=== PATIENT | female | born 1955 | race Hispanic/Latino ===

== ENCOUNTER 2016-07-11 10:53 | Outpatient (CLI) | payer BC ==
--- NOTE | 2016-07-11 15:27 | Cat Scan Report ---
CT of the abdomen and pelvis with IV and oral contrast. Findings: A device resembling a lap band is seen at the esophagogastric junction. The liver and spleen are normal. There is a 1 cm mass composed of adipose tissue in the lateral cortex of the right kidney. There are no other renal abnormalities except for tiny left renal cysts. The gallbladder has been removed. There is no adenopathy within the right peritoneum. The pancreas is unremarkable. There are no pelvic masses or abnormal fluid collections. The uterus has been removed. There is no mesenteric inflammation. The appendix is normal. There is a subcutaneous port in the right upper abdomen related to the gastric surgical device. There are no mesenteric inflammatory changes. No free air is identified. The urinary bladder is unremarkable. Impression: 1. Numerous postsurgical changes including cholecystectomy, lap band device, and hysterectomy. 2. Small right renal angiomyolipoma. Tiny left renal cysts are noted. 3. No acute findings.
== END 2016-07-11 10:54 | disposition home or self-care (01) ==
LOC: CT 10:53
PROVIDERS: ATTEND Internal Medicine
DX: D17.71 Benign lipomatous neoplasm of kidney (principal); N28.1 Cyst of kidney, acquired; N28.89 Other specified disorders of kidney and ureter; Z90.49 Acquired absence of other specified parts of digestive tract; Z90.710 Acquired absence of both cervix and uterus
CPT/HCPCS: 74177; Q9967